=== PATIENT | male | born 1965 | race Caucasian/White ===

== ENCOUNTER 2017-11-08 18:33 | Emergency (ER) | payer MEDICAID ==
[~2017-11-08] VITALS: Ht 175.3 cm; Wt 90.0 kg
[2017-11-08] MEDS ORDERED: DIAZEPAM 5 MG TABLET PO ONE (19:00)
[2017-11-08] MEDS ORDERED: KETOROLAC 30 MG/1 ML IM ONE (19:00)
[2017-11-08 19:04] LABS: BASOPHILS # (AUTO) 0.09 x10^3/uL (0-0.1); BASOPHILS % (AUTO) 1 % (0-1); EOSINOPHILS % (AUTO) 9 % (1-7); LYMPHOCYTES # (AUTO) 3.44 x10^3/uL (1-3.4); LYMPHOCYTES % (AUTO) 30 % (22-44); MD NO; MEAN CORPUSCULAR HGB CONC 34.4 g/dL (33.2-36.2); MEAN CORPUSCULAR VOLUME 87.2 fL (81-97); MEAN PLATELET VOLUME 7.9 fL (7.4-10.4); MONOCYTES # (AUTO) 0.79 x10^3/uL (0.2-0.8); MONOCYTES % (AUTO) 7 % (2-9); NEUTROPHILS # (AUTO) 6.06 x10^3/uL (1.8-6.8); NEUTROPHILS % (AUTO) 53 % (42-75); PLATELET COUNT 300 x10^3/uL (130-400); RED CELL DISTRIBUTION WIDTH 13.3 % (9.4-14.8)
[2017-11-08] MEDS ORDERED: KETOROLAC 30 MG/1 ML ONE (19:05)
[2017-11-08] MEDS ORDERED: DIAZEPAM 5 MG TABLET ONE (19:05)
[2017-11-08 19:14] LABS: ALBUMIN 3.8 g/dL (3.4-5.0); ANION GAP 9 mmol/L (5-15); CALCIUM 8.3 mg/dL (8.5-10.1); CHLORIDE 110 mmol/L (98-107); CREATININE 1.07 mg/dL (0.7-1.3)
[2017-11-08 19:17] LABS: TROPONIN I < 0.015 ng/mL (0.000-0.045)
[2017-11-08 21:00] VITALS: BP 129/65
[2017-11-08] MEDS ORDERED: ALBU0.63 NEB (22:19)
== END 2017-11-08 21:11 | disposition home or self-care (01) ==
LOC: ED 21:05
DX: S29.011A Strain of muscle and tendon of front wall of thorax, initial encounter (principal); J45.909 Unspecified asthma, uncomplicated; X50.9XXA Other and unspecified overexertion or strenuous movements or postures, initial encounter; Y93.89 Activity, other specified; Y92.098 Other place in other non-institutional residence as the place of occurrence of the external cause; Y99.8 Other external cause status
CPT/HCPCS: 36415; 71046; 80048; 82040; 84484; 85025; 93005; 96372; 99285; J1885